=== PATIENT | female | born 1955 | race Caucasian/White ===

== ENCOUNTER 2018-03-26 15:45 | Emergency (ER) | payer MEDICAID ==
[~2018-03-26] VITALS: Ht 172.7 cm; Wt 68.0 kg
[~2018-03-26 15:45] MED LIST: ACYC-113 PO; AMLO10TA4 PO; CELE100C PO; HYDR10TA4 PO; LISI40TA PO; MELA5TAB19 PO; NAPR-856 PO; ONDA4TAB10 PO; SERT25TA3 PO; TRAM100T3 PO
[2018-03-26] MEDS ORDERED: ASPIRIN 81 MG TABLET CHEW ONE (16:24)
[2018-03-26] MEDS ORDERED: PLEASE ENTER HEIGHT AND WEIGHT MC SCH (16:30)
[2018-03-26] MEDS ORDERED: ASPIRIN 81 MG TABLET CHEW PO ONE (16:30)
[2018-03-26] MEDS ORDERED: SODIUM CHLORIDE FLUSH 10ML SYR IVF ONE (16:30)
[2018-03-26 16:45] LABS: BASOPHILS # (AUTO) 0.05 x10^3/uL (0-0.1); BASOPHILS % (AUTO) 1 % (0-1); EOSINOPHILS # (AUTO) 0.09 x10^3/uL (0-0.4); EOSINOPHILS % (AUTO) 2 % (1-7); LYMPHOCYTES # (AUTO) 1.72 x10^3/uL (1-3.4); LYMPHOCYTES % (AUTO) 33 % (22-44); MD NO; MEAN CORPUSCULAR HEMOGLOBIN 34.5 pg (27.0-34.8); MEAN CORPUSCULAR HGB CONC 33.9 g/dL (32.4-35.8); MEAN CORPUSCULAR VOLUME 101.5 fL (80-100); MEAN PLATELET VOLUME 9.9 fL (7.4-10.4); MONOCYTES # (AUTO) 0.49 x10^3/uL (0.2-0.8); MONOCYTES % (AUTO) 9 % (2-9); NEUTROPHILS # (AUTO) 2.81 x10^3/uL (1.8-6.8); NEUTROPHILS % (AUTO) 54 % (42-75); PLATELET COUNT 204 x10^3/uL (130-400); RED BLOOD COUNT 4.35 x10^6/uL (3.82-5.3); RED CELL DISTRIBUTION WIDTH 14.3 % (9.6-15.2)
[2018-03-26 16:51] LABS: ALANINE AMINOTRANSFERASE 31 U/L (12-78); ALBUMIN 3.8 g/dL (3.4-5.0); ANION GAP 6 mmol/L (5-15); CALCIUM 8.7 mg/dL (8.5-10.1); CHLORIDE 110 mmol/L (98-107); CREATININE 0.95 mg/dL (0.55-1.02)
[2018-03-26 16:56] LABS: ALKALINE PHOSPHATASE 73 U/L (45-117); BILIRUBIN,TOTAL 0.5 mg/dL (0.2-1.0); TOTAL PROTEIN 6.8 g/dL (6.4-8.2); TROPONIN I < 0.015 ng/mL (0.000-0.045)
[2018-03-26] MEDS ORDERED: ALBUTEROL/IPRATROPIUM 2.5MG/0.5MG, 3 ML NEB ONE (18:00)
[2018-03-26] MEDS ORDERED: ALBUTEROL/IPRATROPIUM 2.5MG/0.5MG, 3 ML ONE (18:34)
[2018-03-26 18:59] VITALS: BP 144/84
== END 2018-03-26 19:40 | disposition home or self-care (01) ==
LOC: ED 19:10
DX: R06.00 Dyspnea, unspecified (principal); J45.909 Unspecified asthma, uncomplicated; I10 Essential (primary) hypertension; E11.9 Type 2 diabetes mellitus without complications; Z87.891 Personal history of nicotine dependence
CPT/HCPCS: 36415; 71045; 80053; 84484; 85025; 85379; 93005; 94640; 99285; J7620

== ENCOUNTER 2018-09-16 01:52 | Emergency (ER) | payer MEDICAID ==
[~2018-09-16] VITALS: Ht 160 cm; Wt 86.0 kg
[2018-09-16] MEDS ORDERED: SERT50TA28 PO (02:02)
[2018-09-16] MEDS ORDERED: OMEP-110 PO (02:03)
[2018-09-16] MEDS ORDERED: ONDA4TAB7 PO (02:03)
--- NOTE | 2018-09-16 02:06 | NUR ---
PT BIB [facility] W/ CO FLETCHER X 1 DAY. PT HAS HISTORY OF HTN, DEPRESSION, ANXIETY, AND GERD. PER REJI, VSS. PT ATTACHED TO VS MACHINES UPON ARRIVAL TO [facility] ED. VSS. PER EMS, FSBS 122. PT PROVIDED WARM BLANKET. PT EDUCATED ON ER PROCESS AND POC AND VERBALIZES UNDERSTANDING. CALL LIGHT IS WITHIN REACH. AWAITING ERP ORDERS AT THIS TIME.
[2018-09-16] MEDS ORDERED: DIPHENHYDRAMINE 50 MG/ML, 1ML ONE (02:27)
[2018-09-16] MEDS ORDERED: KETOROLAC 30 MG/1 ML ONE (02:27)
[2018-09-16] MEDS ORDERED: PROCHLORPERAZINE 5 MG/ML, 2ML ONE (02:28)
[2018-09-16 02:29] VITALS: BP 129/64
[2018-09-16] MEDS ORDERED: PROCHLORPERAZINE 5 MG/ML, 2ML IVPush ONE (02:30)
[2018-09-16] MEDS ORDERED: DIPHENHYDRAMINE 50 MG/ML, 1ML IVPush ONE (02:30)
[2018-09-16] MEDS ORDERED: KETOROLAC 30 MG/1 ML IVPush ONE (02:30)
--- NOTE | 2018-09-16 02:33 | NUR ---
PT RESTING ON GURNEY, MEDICATED PER OCT, PROVIDED PT WITH WARM BLANKETS, CALL LIGHT WITHIN REACH, MONITORS IN PLACE.
--- NOTE | 2018-09-16 03:59 | NUR ---
PT D/C WITH D/C SUMMARY. ALL QUESTIONS ANSWERED. PT AMBULATES TO REGISTRATION DESK WITH STEADY GAIT FOR D/C HOME. PT VSS AND UPDATED IN EMR.
== END 2018-09-16 04:00 | disposition home or self-care (01) ==
LOC: ED 03:29
DX: G43.009 Migraine without aura, not intractable, without status migrainosus (principal); I10 Essential (primary) hypertension; E11.9 Type 2 diabetes mellitus without complications; F32.9 Major depressive disorder, single episode, unspecified; Z90.710 Acquired absence of both cervix and uterus
CPT/HCPCS: 96374; 96375; 99283; J0780; J1200; J1885